=== PATIENT | male | born 1980 | race Caucasian/White ===

== ENCOUNTER 2016-07-18 10:46 | Day surgery (SDC) | payer BC ==
[2016-07-03 17:42] LABS: BASOPHILS 0.3 %; BASOPHILS ABSOLUTE 0.02 10/3/uL (0.0-0.16); EOSINOPHILS 1.1 %; EOSINOPHILS ABSOLUTE 0.07 10/3/uL (0.0-0.53); HEMATOCRIT 40.7 % (40.0-51.0); HEMOGLOBIN 14.2 g/dL (13.6-17.8); LYMPHOCYTES 33.6 %; LYMPHOCYTES ABSOLUTE 2.12 10/3/uL (0.67-4.30); MEAN CORPUS HGB CONC 34.9 g/dL (32.0-36.0); MEAN CORPUSCULAR HEMOGLOB 32.3 pg (26.0-34.0); MEAN CORPUSCULAR VOLUME 92.7 fL (80-100); MONOCYTES 9.7 %; MONOCYTES ABSOLUTE 0.61 10/3/uL (0.21-1.20); NEUTROPHILS 55.3 %; NEUTROPHILS ABSOLUTE 3.49 10/3/uL (2.02-8.40); PLATELET COUNT 195 10/3/uL (150-400); RBC DISTRIBUTION WIDTH 11.9 % (12.0-16.0); RED CELL COUNT 4.39 10/6/uL (4.7-6.1); WHITE BLOOD CELLS 6.3 10/3/uL (4.5-10.5)
[2016-07-03 17:48] LABS: A/G RATIO 1.3 (0.7-1.9); ALBUMIN 4.5 G/DL (3.5-5.0); ALKALINE PHOSPHATASE 42 U/L (45-117); BUN (BLOOD UREA NITROGEN) 13 MG/DL (6-23); CALCIUM, SERUM 9.4 MG/DL (8.5-10.4); CHLORIDE, SERUM 103 MMOL/L (96-112); CO2 (CARBON DIOXIDE) 27 MMOL/L (24-34); CREATININE 0.84 MG/DL (0.70-1.30); GFR AFRICAN AMERICAN 132 ML/MIN (>=60); GFR NON AFRICAN AMERICAN 114 ML/MIN (>=60); GLOBULIN 3.6 G/DL (2.5-4.1); GLUCOSE, SERUM 94 MG/DL (60-99); POTASSIUM, SERUM 3.9 MMOL/L (3.5-5.3); SGOT(AST) 33 U/L (5-40); SGPT(ALT) 62 U/L (5-65); SODIUM, SERUM 138 MMOL/L (135-148); TOTAL BILIRUBIN 0.6 MG/DL (0-1.2); TOTAL PROTEIN 8.1 G/DL (6.0-8.5)
[2016-07-03 17:53] LABS: MANUAL DIFF NO %
--- NOTE | ~2016-07-18 | OP ---
Record Of Operation [facility] [address] [place]. [address] NAME: CARYN TAYLOR : 82 STATUS : [facility]#: [id number] AGE: 35 ADM/REG DATE : 07/18/16 MR#: [id number] REPORT SERV DATE: 07/19/16 DICTATED BY: OWEN GALINDO III DATE: 07/18/16 REPORT STATUS : Draft TRANSCRIBED BY: MODBessie DATE: 07/18/16 DATE OF PROCEDURE: 07/18/2016 PREOPERATIVE DIAGNOSIS: Symptomatic right inguinal hernia. POSTOPERATIVE DIAGNOSIS: Symptomatic right inguinal hernia. PROCEDURE: Open right inguinal hernia repair with Carlos technique and Prolene mesh. SURGEON: Owen Galindo M.D. ANESTHESIA: General with intubation. COMPLICATIONS: None. ESTIMATED BLOOD LOSS: Less than 5 mL. SPECIMENS: Hernia sac. DRAINS: None lap. LAP AND SPONGE COUNT: Correct x3. BRIEF HISTORY: This 35-year-old male presented with a symptomatic right inguinal hernia. It was felt that open right inguinal hernia repair was indicated. This procedure, the risks, benefits, and alternatives, including not limited to the risk for bleeding, infection, pain, swelling, scarring, deformity to the area, seroma formation, hematoma formation, recurrence of the hernia, nerve injury, chronic paresthesia, pain in the thigh, scrotum, or groin, chronic neuralgia or neuroma, and unforeseen complications including deep venous thrombosis, pulmonary embolus, myocardial infarction, stroke, pneumonia, and , were explained to the patient prior to surgery. The expected length of recovery was explained. The patient's questions were answered. He understood the risks and agreed to the surgery as planned. PROCEDURE: After being properly identified and after discussing the risks of surgery with the patient and his family again in the preoperative area and after identifying the hernia with him in the preoperative area, the patient was taken to the operating room and placed in the supine position on the operating room table. General anesthesia was administered, and he was intubated without difficulty. The abdomen and groins were prepped and draped sterilely in the usual fashion. After an appropriate "time-out" per [employer] standards, a small oblique incision was made in the right groin from the pubic tubercle medially towards the anterior superior iliac spine laterally. The incision was continued through the subcutaneous tissue. Hemostasis was controlled with cautery. The incision was continued down to the external oblique fascia. This fascia was opened along the direction of its fibers, so as to open the external inguinal ring. Using sharp dissection, the underlying ilioinguinal and genitofemoral nerves were identified. These were carefully isolated and protected to one side. Using sharp dissection, the spermatic cord and its contents were Record Of Operation [address] [place]. [address] NAME: CARYN TAYLOR : 82 STATUS : [facility]#: [id number] AGE: 35 ADM/REG DATE : 07/18/16 MR#: [id number] REPORT SERV DATE: 07/19/16 DICTATED BY: OWEN GALINDO III DATE: 07/18/16 REPORT STATUS : Draft TRANSCRIBED BY: KENDAL DATE: 07/18/16 mobilized from the floor of the canal and a [place] drain was placed beneath it. There was noted to be a large indirect hernia sac dissecting along the spermatic cord. There was a lipoma associated with this. Using sharp dissection, the hernia sac was dissected free from the spermatic cord. The hernia sac was dissected down to the internal ring. The hernia sac was opened, and the abdominal contents were reduced. The hernia sac was ligated with 2-0 silk pursestring and doubly ligated with 2-0 silk suture. The hernia sac was amputated above these sutures. A Prolene mesh was then selected and cut to the appropriate size for the floor of the canal. A slit was made in the mesh laterally to incorporate the spermatic cord. The mesh was then secured to the floor of canal with a running 2-0 Prolene suture, which was placed between the edge of the mesh and shelving edge of the inguinal ligament laterally and the edge of the mesh and internal oblique and transversalis fascia medially. The mesh was secured lateral to the cord as well. Upon completion of this, mesh lay nicely on the floor of canal, was not twisted or kinked in any way, it was not under any tension. Hemostasis was assured. A small finger could be placed through the internal ring so that the spermatic vessels had not been unduly tightened or narrowed. Hemostasis was assured. The external oblique fascia was closed with a running 3-0 silk suture, the subcutaneous tissue was closed with running 3-0 chromic suture, and the skin was closed with running subcuticular 4-0 Monocryl stitch. The incision was injected with 0.5% Marcaine. Dressings were applied. Anesthesia was reversed, and the patient was taken to the recovery room in stable condition. He tolerated the procedure well. His family was informed of the results of surgery. The patient was discharged when stable and comfortable and able to void and ambulate. His family was advised that he should keep his wound clean and dry for [address] hours[address] He should not drive for three to four days after surgery or while using narcotics and that he should resume his usual medications. He was asked to return in two weeks for followup or sooner if any fever, chills, wound drainage, or other problems prior to that time. He was given a prescription for Percocet 7.5 one t.i.d., #12, as needed for pain, which he was advised not to use while driving. He was advised not to perform any heavy lifting for four to five weeks. RHJ/KENDAL Owen Galindo III, M.D. / [id number] CC: Carol Balbuena III, M.D.
--- NOTE | ~2016-07-18 | PREOPHP ---
PreOp History and Physical [facility] [address] [place]. [address] NAME: CARYN TAYLOR : 82 STATUS : [facility]#: [id number] AGE: 35 ADM/REG DATE : 07/18/16 MR#: [id number] REPORT SERV DATE: 07/22/16 DICTATED BY: OWEN WALDEN III DATE: 06/18/16 REPORT STATUS : Draft TRANSCRIBED BY: KENDAL DATE: 06/18/16 HISTORY OF PRESENT ILLNESS: This 35-year-old male comes to the operating room for open repair of symptomatic right inguinal hernia. The patient noticed a mass in his right groin about one month ago. This has been symptomatic in terms of local pain and discomfort. This occurred after a heavy coughing when the patient had a cold. The patient has had no nausea, vomiting, or obstructive symptoms. He comes to the operating room for an open repair of a symptomatic right inguinal hernia. MEDICATIONS: Vitamins. PAST MEDICAL HISTORY: Essentially unremarkable. No history of diabetes, hypertension, cardiac or pulmonary disease. FAMILY HISTORY: Positive for heart disease. SOCIAL HISTORY: No history of tobacco use. The patient does have a history of some alcohol use. ALLERGIES: NONE. REVIEW OF SYSTEMS: Otherwise unremarkable. PHYSICAL EXAMINATION: GENERAL: This is a pleasant obese male, in no acute distress. He is alert and oriented x3. VITAL SIGNS: Blood pressure 144/86, pulse 97, temperature 97.2. HEENT: Unremarkable. Cranial nerves 2 through 12 are normal. LUNGS: Clear. CARDIAC: Normal. ABDOMEN: Soft and nontender. PELVIC: In the right groin, he has a right inguinal hernia, which is reducible. The left groin is normal. EXTREMITIES: Normal. ASSESSMENT: A 35-year-old male with, 1. Symptomatic right inguinal hernia. 2. Obesity. PLAN: The patient comes to the operating room now for open right inguinal hernia repair. This procedure, risks, benefits, and alternatives, including but not limited to the risk for bleeding, infection, pain, swelling, scarring, or deformity to the area, seroma formation, hematoma formation, recurrence of the hernia, nerve injury, chronic paresthesia, pain in the thigh, scrotum, or groin, chronic neuralgia or neuroma, and unforeseen complications including deep venous thrombosis, pulmonary embolus, myocardial infarction, stroke, pneumonia, and , have been explained to the patient prior to surgery. The expected length of recovery has been explained. The patient's questions have been answered. He PreOp History and Physical [address] [place]. [address] NAME: CARYN TAYLOR : 82 STATUS : [facility] PAT#: [id number] AGE: 35 ADM/REG DATE : 07/18/16 MR#: [id number] REPORT SERV DATE: 07/22/16 DICTATED BY: OWEN WALDEN III DATE: 06/18/16 REPORT STATUS : Draft TRANSCRIBED BY: KENDAL DATE: 06/18/16 understands the risks and agrees to surgery as planned. RHMiko/KENDAL Owen Walden III, M.D. / [id number]
== END 2016-07-18 19:01 | disposition home or self-care (01) ==
LOC: SDC 10:46
PROVIDERS: Surgery
PROC: 0YU50JZ Supplement Right Inguinal Region with Synthetic Substitute, Open Approach (ICD-10-PCS; principal; 2016-07-18 12:30)
DX: K40.90 Unilateral inguinal hernia, without obstruction or gangrene, not specified as recurrent (principal); Z98.890 Other specified postprocedural states
CPT/HCPCS: 71020; 80053; 85025; 88302; 93005; A9270-GY; C1781; J0690; J2250; J2270; J2405; J2710; J3010